=== PATIENT | female | born 1980 | race Caucasian/White ===

== ENCOUNTER 2022-10-03 18:29 | Emergency (ER) | payer BC ==
[~2022-10-03] VITALS: Ht 157.5 cm; Wt 63.5 kg
[2022-10-03 18:45] VITALS: BP_SYST 150
--- NOTE | 2022-10-03 19:30 | NUR ---
Patient to ER CHAIR for evaluation.
--- NOTE | 2022-10-03 19:32 | NUR ---
ER at bedside examining patient.
[2022-10-03] MEDS ORDERED: SULF1TAB48 PO (19:49)
[2022-10-03] MEDS ORDERED: CEPH-548 PO (19:49)
--- NOTE | 2022-10-03 19:57 | NUR ---
Patient given written and verbal discharge instructions and verbalizes understanding. ER MD discussed with patient the results and treatment provided. Patient in stable condition. ID arm band removed. Rx ofBACTRIM AND CEPHALEXIN given. Patient educated on pain management and to follow up with PMD. Pain Scale 0/10 Opportunity for questions provided and answered. Medication side effect fact sheet provided.
== END 2022-10-03 19:57 | disposition home or self-care (01) ==
LOC: SED 18:29
DX: L03.811 Cellulitis of head [any part, except face] (principal); R22.0 Localized swelling, mass and lump, head; Z79.899 Other long term (current) drug therapy
CPT/HCPCS: 99283

== ENCOUNTER 2022-10-05 11:03 | Emergency (ER) | payer BC ==
[~2022-10-05] VITALS: Ht 157.5 cm; Wt 63.5 kg
[~2022-10-05 11:03] MED LIST: CEPH-548 PO; SULF1TAB48 PO
[2022-10-05 11:16] VITALS: BP_SYST 174
--- NOTE | 2022-10-05 11:18 | NUR ---
Patient to ER bed H1 to gown for evaluation. Side rails up.
--- NOTE | 2022-10-05 11:20 | NUR ---
PT BIB BOYFRIEND FROM HOME C/O RASH TO FACE, NECK AND CHEST AFTER STARTING BACTRIM THIS AM WITH TOTAL BODY ITCHING. PT STATES SHE TOOK BENADRYL 50MG ABOUT 30 MIN PRIOR TO ARRIVAL. PT DENIES ANY SOB, TONGUE OR THROAT SWELLING. SPEAKING IN CLEAR, COMPLETE SENTENCES. AAOX4, VSS
--- NOTE | 2022-10-05 11:27 | NUR ---
ER DR. VAN AT THE BEDSIDE EXAMINING PT
[2022-10-05] MEDS ORDERED: predniSONE 20 MG TABLET PO ONE (11:30)
[2022-10-05] MEDS ORDERED: FAMOTIDINE 20 MG TABLET PO ONE (11:30)
[2022-10-05] MEDS ORDERED: FAMOTIDINE 20 MG TABLET ONE (12:05)
[2022-10-05] MEDS ORDERED: PRED20TA PO (12:32)
[2022-10-05] MEDS ORDERED: HYDC2.5% TP (12:32)
[2022-10-05] MEDS ORDERED: DIPH25CA83 PO (12:32)
[2022-10-05] MEDS ORDERED: FAMO20TA8 PO (12:32)
--- NOTE | 2022-10-05 12:45 | NUR ---
Patient given written and verbal discharge instructions and verbalizes understanding. ER MD discussed with patient the results and treatment provided. Patient in stable condition. ID arm band removed. Rx of BENADRYL, PEPCID, HYDROCORTISONE AND PREDNISONE given. Patient educated on pain management and to follow up with PMD. Pain Scale 0/10. Opportunity for questions provided and answered. Medication side effect fact sheet provided.
[2022-10-05 12:46] VITALS: BP_SYST 141
== END 2022-10-05 12:45 | disposition home or self-care (01) ==
LOC: SED 11:03
DX: R21 Rash and other nonspecific skin eruption (principal); T36.8X5A Adverse effect of other systemic antibiotics, initial encounter; Z79.899 Other long term (current) drug therapy; Y92.89 Other specified places as the place of occurrence of the external cause
CPT/HCPCS: 99283; J7512